=== PATIENT | female | born 1985 | race Caucasian/White ===

== ENCOUNTER 2016-08-24 11:33 | Inpatient (IN) | payer MEDICAID ==
[~2016-08-24] VITALS: Ht 152.4 cm; Wt 69.5 kg
[~2016-08-24 11:33] MED LIST: DOXY1TAB3 PO; PRENAT PO
[2016-08-24 12:36] VITALS: Ht 152.4 cm; Wt 69.5 kg
[2016-08-24 12:37] VITALS: BP 110/64; PULSE 96; RESP 20
--- NOTE | 2016-08-24 13:57 | RADRPT ---
PROCEDURE: US OB biophysical profile. Ultrasound cervix CLINICAL INDICATION: decreased movements, bleeding TECHNIQUE: Multiple sonographic images of the pelvis were obtained. The images were reviewed on a PACS workstation. In addition, transvaginal images of the cervix were obtained. COMPARISON: No prior studies are available for comparison. FINDINGS: The cervix is closed and measures 2 cm in length. The umbilical cord and hand are seen before the head in the lower uterine segment. There is a single viable intrauterine gestation. Cardiac activity is present with 146 beats per min butch. There is a vertex presentation. The placenta is fundal. There is no evidence of placental abruption. There is a normal amount of amniotic fluid with an CONSTANCE = 14.4 cm. Biophysical profile: movement 2/2 tone 2/2. breathing 2/2 CONSTANCE 2/2 Total 01/24 RPTAT: AA . IMPRESSION: Normal biophysical profile. Cervix is closed and measures 2 cm in length. Umbilical cord and hand are seen before the head in the lower uterine segment. . .Neri Lechuga MD, MD Date Time Electronically viewed and signed by .Neri Lechuga MD, on 08/24/2016 13:57 .S/
--- NOTE | 2016-08-24 15:23 | TRIAGE ---
OB Triage Datetime Report Generated by CPN: 08/24/2016 15:23 Datetime: 08/24/2016 14:37 Stage of : Antepartum Datetime: 08/24/2016 14:36 Vaginal Exam Dilatation (cms): 0.0 Station: -3 Exam By: DR. ARADALAN Datetime: 08/24/2016 13:53 Labor Evaluation Frequency: IRREG Monitor Mode: External Duration (sec)2399: 40-70 Quality: Strong Pattern: Normal: <= 5 Contractions in 10 Minutes Resting Tone [place]: Relaxed Heart Rate FHR Baseline Rate: 145 Monitor Mode: External US Variability: Moderate 6-25 bpm Accelerations: 15X15 Decelerations: None Category: Category I Datetime: 08/24/2016 12:23 Stage of : OB Triage Assessment Type: Triage Maternal Assessment Level of Consciousness: Fully Conscious DTR's/Clonus: DTRs 2+; No Clonus Headache: Denies Blurred Vision: No Respiratory Effort: Unlabored; Regular Rhythm; Equal Expansion Breath Sounds, Left: Clear and Equal Breath Sounds, Right: Clear and Equal Nausea/Vomiting: Denies RUQ Epigastric Pain: Denies Lower Extremities Edema: None Degree: None Upper Extremities Edema: None Degree: None Facial Edema: None Temperature Route: Axillary Fall Risk Assessment History of Falling: (0) No Secondary Diagnosis: (0) No Ambulatory Aid: (0) Bedrest/Nurse Assist IV Therapy: (0) No Gait: (0) Normal/Bedrest/Immobile Mental Status: (0) Oriented to Own Ability Fall Score: 0 Fall Risk Score Definition: No Risk: No action required Datetime: 08/24/2016 12:22 EGA: 30.6 Datetime: 08/24/2016 12:20 Pain Assessment Pain Scale: 8 Pain Presence: Intermittent Pain Type: Pressure Pain Location: Perineum Pain Goal: 2 Pain Relief Measures: Comfort Measures Datetime: 08/24/2016 11:53 Time of Arrival: 08/24/2016 11:24 Arrived By: Ambulatory Arrived From: Home Chief Complaint: R/O PTL Movement: Present Contractions: Irregular Time Contractions Began: 08/24/2016 08:00 Contractions: 6-8 Rupture of Membranes: Denies Vaginal Bleeding: None Vaginal Discharge: Denies Recent Sexual Intercouse: Denies Abdominal Trauma: Not Applicable Patient Complaints: Contractions Time Provider Notified: 08/24/2016 12:25 Provider Notified: DR. LOPEZ Initial Plan: CL, NST, PLACENTA LOCATION, SPECULUM EXAM Datetime: 08/24/2016 11:50 Labor Evaluation Frequency: 0 Monitor Mode: External Duration (sec)2399: 0 Resting Tone [place]: Relaxed Contraction Comments: PLACE PT ON THE MONITOR Heart Rate FHR Baseline Rate: 150 Monitor Mode: External US FHR Baseline Changes: No Baseline Change Variability: Moderate 6-25 bpm Accelerations: 10X10 Decelerations: Variable Category: Category II Comments: PLACE PT ON LEFT SIDE
[2016-08-24] MEDS ORDERED: MAGNESIUM SULFATE 4 GM/100 ML 100 ML IV ONE (15:30)
[2016-08-24] MEDS ORDERED: AMPICILLIN 2 GM/NS (PMX) 100 ML IV ONE (15:30)
[2016-08-24] MEDS: BETAMET NA PHOS/AC(6 MG/ML) 5ML INJ IM SCH (15:40)
[2016-08-24] MEDS: LACTATED RINGER'S 1,000 ML IV SCH ×2 (15:51→23:25)
[2016-08-24] MEDS: MAGNESIUM SULFATE 20 GM/500 ML 500 ML IV SCH (16:12)
[2016-08-24] MEDS: AMPICILLIN 1 GM/NS (PMX) 50 ML IV SCH (20:40)
--- NOTE | 2016-08-24 21:35 | HP ---
Date/Time of Note Date/Time of Note DATE: 08/24/16 TIME: 21:35 OB - History Hx of Present Free Text/Dictation 31-year-old with IUP at 30 weeks and 6 days with care with Dr. Lora presented to the hospital with complaint of bleeding intermittently since 2 days ago as well as increasing pelvic pain and pressure since this morning. She reports she she was feeling cramps and pelvic pressure today at work and brought her to the hospital. Patient was noted to have a short cervix and exam. Cervical length: 2 cm. OB history significant for history of UTI in current admitted in the past for 2 days and had been treated. She also has a history of GDM A1 well controlled with diet. She was noted to have contractions on the monitor during observation in triage Due to contractions and short cervix consistent with labor patient will be admitted to antepartum service for tocolysis and steroid. Chief Complaint: Pelvic pressure, spotting and cramps Estimated Due Date: October 27, 2016 : 3 Para: 2 Care: Good Care Past Family/Social History * Past Medical, Surgical, Family and Obstetric Histories reviewed from chart. OB history significant for GDM, A diet-controlled History of UTI in current admitted in the past for 2 days and had been treated Currently denies any UTI symptoms OB Admission Exam Vital Signs Vital Signs Vital Signs Date Time Temp Pulse Resp B/P Pulse Ox O2 Delivery O2 Flow Rate FiO2 08/24/16 12:37 98.3 96 20 110/64 99 Room Air PROCEDURE: US OB biophysical profile. Ultrasound cervix CLINICAL INDICATION: decreased movements, bleeding TECHNIQUE: Multiple sonographic images of the pelvis were obtained. The images were reviewed on a PACS workstation. In addition, transvaginal images of the cervix were obtained. COMPARISON: No prior studies are available for comparison. FINDINGS: The cervix is closed and measures 2 cm in length. The umbilical cord and hand are seen before the head in the lower uterine segment. There is a single viable intrauterine gestation. Cardiac activity is present with 146 beats per minute. There is a vertex presentation. The placenta is fundal. There is no evidence of placental abruption. There is a normal amount of amniotic fluid with an CONSTANCE = 14.4 cm. Biophysical profile: movement 2/2 tone 2/2. breathing 2/2 CONSTANCE 2/2 Total 01/24 RPTAT: AA . IMPRESSION: Normal biophysical profile. Cervix is closed and measures 2 cm in length. Umbilical cord and hand are seen before the head in the lower uterine segment. . Physical Exam HEENT: WNL Heart: Rhythm Normal Lungs: Clear Abdomen: WNL Extremities: Normal Cervical Dilatation: None Effacement: Other (CL: 2 cm in us. Could not obtain FFN due to spotting) Heart Rate: 130's Accelerations: Accelerations Present Decelerations: No Decelerations Varibility: Moderate Contractions on Admission: < 5 Minutes Apart Intensity: Moderate Last 72 hourBlood Glucose Bedside Glucose - 72 Hours Test 08/24/16 19:55 Bedside Glucose 156mg/dL (70-220) Last 72 hours Lab Results Magnesium Level Test 08/24/16 17:58 Magnesium Level 4.2 H OB Assessment/Plan Other Assessment: IUP at 30 weeks and 6 days Short cervix and contractions and vaginal bleeding consistent with labor RH positive, no evidence of previa or abruption in us Patient will be admitted for tocolysis and steroid magnesium for tocolysis and neuro prophylaxis Ampicillin for GBS prophylaxis will start steroid UA, urine Gc/ Chlamydia Perinatology/neonatology consultation tomorrow Presentation in ultrasound: Compound ( Vtx and hand ) as well as cord seen in the lower uterine segment Watch closely 2000 KCal diet check blood sugars , fasting and 2 hours post prandial. Goal of fasting < 90 and post prandial < 120, cover with ISS Plan discussed with the patient. questions were answered to the patient's best satisfaction ANTONIO LOPEZ MD Aug 24, 2016 21:35
[2016-08-24] MEDS ORDERED: DIPHTH/TET/ACEL PERTUSS (ADULT) 0.5 ML VIAL IM* ONE (22:00)
[2016-08-25] MEDS: MAGNESIUM SULFATE 20 GM/500 ML 500 ML IV SCH ×2 (01:25→04:41)
[2016-08-25] MEDS: AMPICILLIN 1 GM/NS (PMX) 50 ML IV SCH ×2 (04:23→04:35)
[2016-08-25] MEDS: LACTATED RINGER'S 1,000 ML IV SCH (04:35)
[2016-08-25] MEDS ORDERED: GLUCOSE GEL 15 GRAM TUBE PO PRN ×2 (05:30)
[2016-08-25] MEDS ORDERED: GLUCAGON 1 MG INJ IM PRN (05:30)
[2016-08-25] MEDS ORDERED: GLUCOSE GEL 15 GRAM TUBE BUCCAL PRN (05:30)
[2016-08-25] MEDS ORDERED: DEXTROSE 50% 50 ML SYRINGE IV PRN ×2 (05:30)
[2016-08-25] MEDS ORDERED: MULTIVIT/MIN/FOLATE/IRON/PREN TAB PO SCH ×2 (09:00)
[2016-08-25] MEDS ORDERED: AMPICILLIN 1 GM/NS (PMX) 50 ML IV SCH (10:30)
[2016-08-25] MEDS: MULTIVIT/MIN/FOLATE/IRON/PREN TAB PO SCH (10:40)
[2016-08-25] MEDS: INSULIN ASPART [NOVOLOG] 3 ML PEN SC SCH ×3 (10:47→19:42)
[2016-08-25 10:53] LABS: ADD UMIC NO; URINE BILIRUBIN (Dip) NEGATIVE (NEGATIVE); URINE BLOOD (Dip) NEGATIVE (NEGATIVE); URINE COLOR LT. YELLOW (YELLOW); URINE GLUCOSE (Dip) NEGATIVE (NEGATIVE); URINE KETONES (Dip) 3+ (NEGATIVE); URINE LEUKOCYTE ESTERASE (Dip) NEGATIVE (NEGATIVE); URINE NITRITE (Dip) NEGATIVE (NEGATIVE); URINE TOTAL PROTEIN (Dip) NEGATIVE (NEGATIVE); URINE UROBILINOGEN (Dip) 0.2 E.U./dL (0.1-1.0)
--- NOTE | 2016-08-25 11:01 | QN ---
Documentation Comment doing well today vss tracing catg 1 no ctxs no change in cervix will receive second beta methasone today and d/c home TOAN BUTCHER MD Aug 25, 2016 11:01
--- NOTE | 2016-08-25 11:02 | PD.PPDC ---
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 Discharge Instruction Condition Patient Condition: Stable Diet Diet: Resume Regular Diet Activity/Restrictions Activity: Normal Activity May Shower Restrictions: No Exercising No Lifting No Driving No Sexual Activity Nothing in the Vagina No [place] No Tampons, douche Wound/Drain Care Instructions Wound/Drain Care Instructions: Wash with soap and water Keep clean and dry Follow-up Follow-up with Physician: 1, Week/Weeks Return to clinic for PRODUCTION COORDINATOR Instructions: Fever greater than 101 Chills Worsening abdominal pain Excessive Vaginal Bleeding More than 2 pads per hour Unable to tolerate diet OB Instructions: Breast Tenderness Depression Blurried Vision Headache Surgical Instructions: Incisional Drainage Incisional Redness TOAN BUTCHER MD Aug 25, 2016 11:02
--- NOTE | 2016-08-25 11:02 | DS ---
Date/Time of Note Date/Time of Note DATE: 08/25/16 TIME: 11:01 Discharge Summary Admission/Discharge Info Admit Date/Time Aug 24, 2016 at 14:48 Discharge Date/Time Final Diagnosis labor Patient Condition: Stable Hospital Course unremarkable ., received mag sultfate, beta methasone , antibiotics Home Meds Active Scripts Doxylamine/Pyridoxine Hcl (NEIL DUGGAN 10-10 MG TABLET) 1 Each Tablet., 1 TAB PO Q12 for VOMITTING, #30 TAB Prov:BRAULIO ESPINOZA V. FOOD AND BEVERAGE COORDINATOR 03/17/16 Multivit/Min/Fol Ac/Iron/Pren* ( S*) 1 Tab Tab, 1 TAB PO DAILY for 30 Days, TAB Prov:BRAULIO ESPINOZA V. FOOD AND BEVERAGE COORDINATOR 03/17/16 Pending Labs Laboratory Tests Test 08/24/16 17:58 08/24/16 19:55 08/25/16 00:37 08/25/16 05:42 Magnesium Level 4.2mg/dl (1.7-2.5) 5.3mg/dl (1.7-2.5) 4.8mg/dl (1.7-2.5) Bedside Glucose 156mg/dL (70-220) Test 08/25/16 08:18 08/25/16 09:45 Bedside Glucose 115mg/dL (70-220) Urine Bilirubin NEGATIVE (NEGATIVE) Urine Clarity CLEAR (CLEAR) Urine Color LT. YELLOW (YELLOW) Urine Glucose NEGATIVE% (NEGATIVE) Urine Hemoglobin NEGATIVE (NEGATIVE) Urine Ketones 3+ (NEGATIVE) Urine Leukocyte Esterase NEGATIVE (NEGATIVE) Urine Nitrite NEGATIVE (NEGATIVE) Urine Specific [place] >=1.030 (1.003-1.030) Urine Total Protein NEGATIVE (NEGATIVE) Urine Urobilinogen 0.2 E.U./dL (0.1-1.0) Urine pH 5.0 (5.0-9.0) TOAN BUTCHER MD Aug 25, 2016 11:01
[2016-08-25] MEDS: BETAMET NA PHOS/AC(6 MG/ML) 5ML INJ IM SCH (15:55)
[2016-08-26] MEDS: MULTIVIT/MIN/FOLATE/IRON/PREN TAB PO SCH (09:11)
[2016-08-26] MEDS: INSULIN ASPART [NOVOLOG] 3 ML PEN SC SCH ×2 (11:22→14:44)
[2016-08-26] MEDS ORDERED: INSULIN DETEMIR [LEVEMIR] 3ML CART SC ONE (14:30)
--- NOTE | 2016-08-26 16:13 | DS ---
Date/Time of Note Date/Time of Note DATE: 08/26/16 TIME: 16:11 Discharge Summary Admission/Discharge Info Admit Date/Time Aug 24, 2016 at 14:48 Discharge Date/Time Final Diagnosis third trimester bleeding gestational DM Patient Condition: Stable Hospital Course unremarkable ., received mag sultfate, beta methasone , antibiotics addemdum to prevoius DC summary pt stayed for BS treatment and seen by dr bustos and can be dc home Home Meds Active Scripts Doxylamine/Pyridoxine Hcl (NEIL DUGGAN 10-10 MG TABLET) 1 Each Tablet.dr, 1 TAB PO Q12 for VOMITTING, #30 TAB Prov:ESPINOZAYOKASTAA V. SALES REPRESENTATIVE [employer] 03/17/16 Multivit/Min/Fol Ac/Iron/Pren* ( S*) 1 Tab Tab, 1 TAB PO DAILY for 30 Days, TAB Prov:ESPINOZA,BRAULIO V. SALES REPRESENTATIVE [employer] 03/17/16 Pending Labs Laboratory Tests Test 08/25/16 19:34 08/26/16 08:40 08/26/16 11:22 08/26/16 14:38 Bedside Glucose 204mg/dL (70-220) 117mg/dL (70-220) 155mg/dL (70-220) 143mg/dL (70-220) JILL UGARTE MD Aug 26, 2016 16:13
--- NOTE | 2016-08-26 17:15 | PERINOTE ---
Date/Time of Note Date/Time of Note DATE: 08/26/16 TIME: 17:07 Assessment/Recommendations Other Assessments Diabetes out of control, not all of which is explained by steroid administration. UCs, now abated Recommendations: This patient will have an injection of levamir for acute basal regulation of blood glucose, and will be discharged with metformin 500mg BID. She has an appointment for follow up in the perinatology office. OB Subjective Free Text/Dictaton Patient admitted with vaginal bleeding, now resolved. She was also found to have diabetes out of control, especially after the administration of steroids. HgbA1c was 7.8%, suggesting pre-existing diabetes. Patient reports diabetes with her last , treated with diet. She has been noncompliant with diet in this . HD# 3 IUP @ 31W1D Complaints/Overnight events Patient reports no further bleeding. Current Medications Current Medications Prenat Multivit/ Testing Engineer/Iron/Folic Ac ( S) 1 tab DAILY PO Last administered on 08/26/16t 09:11; Admin Dose 1 TAB; Start 08/25/16 at 09:00 Miscellaneous Information 1 ea NOTE XX ; Start 08/25/16 at 05:30 Glucose (Glutose) 15 gm Q15M PRN PO DECREASED GLUCOSE; Start 08/25/16 at 05:30 Glucose (Glutose) 22.5 gm Q15M PRN PO DECREASED GLUCOSE; Start 08/25/16 at 05:30 Dextrose (D50w Syringe) 25 ml Q15M PRN IV DECREASED GLUCOSE; Start 08/25/16 at 05:30 Dextrose (D50w Syringe) 50 ml Q15M PRN IV DECREASED GLUCOSE; Start 08/25/16 at 05:30 Glucagon (Glucagen) 1 mg Q15M PRN IM DECREASED GLUCOSE; Start 08/25/16 at 05:30 Glucose (Glutose) 15 gm Q15M PRN BUCCAL DECREASED GLUCOSE; Start 08/25/16 at 05: 30 Past Medical History Medical History: no pertinent history Surgical History: no surgical history Para: 2 : 3 LMP (Females 10-50): OB Admission Exam Physical Exam Vitals: Vital Signs Date Time Temp Pulse Resp B/P Pulse Ox O2 Delivery O2 Flow Rate FiO2 08/24/16 12:37 98.3 96 20 110/64 99 Room Air Heart: Rhythm Normal Lungs: Clear Heart Rate: 120's Accelerations: Accelerations Present Decelerations: No Decelerations Varibility: Moderate Contractions on Admission: None Last 72 hourBlood Glucose Bedside Glucose - 72 Hours Test 08/24/16 19:55 08/25/16 08:18 08/25/16 10:39 08/25/16 14:20 Bedside Glucose 156mg/dL (70-220) 115mg/dL (70-220) 226mg/dL (70-220) H 185mg/dL (70-220) Test 08/25/16 19:34 08/26/16 08:40 08/26/16 11:22 08/26/16 14:38 Bedside Glucose 204mg/dL (70-220) 117mg/dL (70-220) 155mg/dL (70-220) 143mg/dL (70-220) Last 72 hours Lab Results Magnesium Level Test 08/24/16 17:58 08/25/16 00:37 08/25/16 05:42 Magnesium Level 4.2 H 5.3 *H 4.8 H SHANA ROCHA MD Aug 26, 2016 17:15
== END 2016-08-26 20:28 | disposition home or self-care (01) | DRG 781 ==
LOC: OBT 11:33 → L-D 11:33 → OBT 14:46 → OBG 14:48
PROVIDERS: ADMIT Obstetrics & Gynecology; ATTEND Obstetrics & Gynecology
DX: O26.873 Cervical shortening, third trimester (principal); O24.419 Gestational diabetes mellitus in pregnancy, unspecified control; Z3A.30 30 weeks gestation of pregnancy
CPT/HCPCS: 36415; 76817; 76818; 81003; 82962; 83735; 87086; 87591; 90715; 96360; 96361; G0463; J0290; J0702; J1815; J3475; J7120

== ENCOUNTER 2016-10-07 15:48 | Outpatient (CLI) | payer MEDICAID ==
[~2016-10-07] VITALS: Ht 152.4 cm; Wt 72.1 kg
[2016-10-07 16:08] VITALS: BP 122/75; PULSE 85
--- NOTE | 2016-10-07 18:57 | TRIAGE ---
OB Triage Datetime Report Generated by CPN: 10/07/2016 18:57 Datetime: 10/07/2016 18:40 Labor Evaluation Frequency: OCC Monitor Mode: External Duration (sec)2399: 50-90 Quality: Moderate Pattern: Normal: <= 5 Contractions in 10 Minutes Resting Tone [place]: Relaxed Heart Rate FHR Baseline Rate: 135 Monitor Mode: External US FHR Baseline Changes: No Baseline Change Variability: Moderate 6-25 bpm Accelerations: 15X15 Decelerations: None Category: Category I Pain Assessment Pain Scale: 8 Pain Presence: Intermittent Pain Type: Contraction; Pressure Pain Location: Abdomen; Back Pain Goal: 2 Pain Relief Measures: Comfort Measures Datetime: 10/07/2016 18:31 Vaginal Exam Dilatation (cms): 1.0 Effacement (%): 50 Station: -3 Exam By: Shanell RN Datetime: 10/07/2016 16:25 Labor Evaluation Frequency: 1-6 Monitor Mode: External Duration (sec)2399: 40-180 Quality: Moderate Pattern: Normal: <= 5 Contractions in 10 Minutes Resting Tone [place]: Relaxed Heart Rate FHR Baseline Rate: 130 Monitor Mode: External US FHR Baseline Changes: No Baseline Change Variability: Moderate 6-25 bpm Accelerations: 15X15 Decelerations: None Category: Category I Datetime: 10/07/2016 16:01 Vaginal Exam Dilatation (cms): 1.0 Effacement (%): 40 Station: -4 Exam By: Shanell RN Datetime: 10/07/2016 16:00 Pain Assessment Pain Scale: 8 Pain Presence: Intermittent Pain Type: Contraction; Pressure Pain Location: Abdomen; Back Pain Goal: 2 Pain Relief Measures: Comfort Measures Datetime: 10/07/2016 15:54 Time of Arrival: 10/07/2016 15:45 EGA: 37.1 Arrived By: Ambulatory Arrived From: Home Chief Complaint: UC Movement: Present Contractions: Denies/Absent Rupture of Membranes: Denies Vaginal Discharge: Denies Recent Sexual Intercouse: Denies Abdominal Trauma: Not Applicable Initial Plan: NST, Pt to ambulate for 2 hours, VE Datetime: 08/26/2016 16:02 Stage of : Antepartum Datetime: 08/26/2016 14:40 Stage of : Antepartum Bedside Blood Glucose: 145 (Annotations: 2 hour post prandial) Labor Evaluation Frequency: x3 Monitor Mode: External Duration (sec)2399: 40-50 Quality: Mild Resting Tone [place]: Relaxed Heart Rate FHR Baseline Rate: 135 Monitor Mode: External US FHR Baseline Changes: No Baseline Change Variability: Moderate 6-25 bpm Accelerations: 15X15 Decelerations: None Datetime: 08/26/2016 14:00 Stage of : Antepartum Datetime: 08/26/2016 13:45 Stage of : Antepartum Labor Evaluation Frequency: x3 Monitor Mode: External Duration (sec)2399: 40-50 Quality: Mild Resting Tone [place]: Relaxed Heart Rate FHR Baseline Rate: 135 Monitor Mode: External US FHR Baseline Changes: No Baseline Change Variability: Moderate 6-25 bpm Accelerations: 15X15 Decelerations: None Datetime: 08/26/2016 12:45 Labor Evaluation Frequency: 0 Monitor Mode: External Resting Tone [place]: Relaxed Heart Rate FHR Baseline Rate: 135 Monitor Mode: External US FHR Baseline Changes: No Baseline Change Variability: Moderate 6-25 bpm Accelerations: 15X15 Decelerations: None Datetime: 08/26/2016 11:45 Labor Evaluation Frequency: x2 Monitor Mode: External Duration (sec)2399: 50-100 Quality: Mild Resting Tone [place]: Relaxed Heart Rate FHR Baseline Rate: 135 Monitor Mode: External US FHR Baseline Changes: No Baseline Change Variability: Moderate 6-25 bpm Accelerations: 15X15 Decelerations: None Datetime: 08/26/2016 11:22 Stage of : Antepartum Bedside Blood Glucose: 155 (Annotations: 2 hour post prandial) Datetime: 08/26/2016 10:45 Labor Evaluation Frequency: x2 Monitor Mode: External Duration (sec)2399: 50-100 Quality: Mild Resting Tone [place]: Relaxed Heart Rate FHR Baseline Rate: 135 Monitor Mode: External US FHR Baseline Changes: No Baseline Change Variability: Moderate 6-25 bpm Accelerations: 15X15 Decelerations: None Datetime: 08/26/2016 09:45 Labor Evaluation Frequency: x2 Monitor Mode: External Duration (sec)2399: 50-100 Quality: Mild Resting Tone [place]: Relaxed Heart Rate FHR Baseline Rate: 130 Monitor Mode: External US FHR Baseline Changes: No Baseline Change Variability: Moderate 6-25 bpm Accelerations: 15X15 Decelerations: None Datetime: 08/26/2016 08:45 Labor Evaluation Frequency: x2 Monitor Mode: External Duration (sec)2399: 50-100 Quality: Mild Resting Tone [place]: Relaxed Heart Rate FHR Baseline Rate: 130 Monitor Mode: External US FHR Baseline Changes: No Baseline Change Variability: Moderate 6-25 bpm Accelerations: 15X15 Decelerations: None Datetime: 08/26/2016 08:36 Bedside Blood Glucose: 117 (Annotations: FBS) Datetime: 08/26/2016 08:16 Stage of : Antepartum Temperature Route: Oral Pain Assessment Pain Scale: 0 Pain Presence: None/Denies Pain Goal: 0 Datetime: 08/26/2016 07:45 Labor Evaluation Frequency: x2 Monitor Mode: External Duration (sec)2399: 50-100 Quality: Mild Resting Tone [place]: Relaxed Heart Rate FHR Baseline Rate: 130 Monitor Mode: External US FHR Baseline Changes: No Baseline Change Variability: Moderate 6-25 bpm Accelerations: 15X15 Decelerations: None Datetime: 08/26/2016 07:30 Assessment Type: Ongoing Assessment Maternal Assessment Level of Consciousness: Fully Conscious DTR's/Clonus: DTRs 2+; No Clonus Headache: Denies Blurred Vision: No Respiratory Effort: Unlabored; Regular Rhythm; Equal Expansion Breath Sounds, Left: Clear and Equal Breath Sounds, Right: Clear and Equal Nausea/Vomiting: Denies RUQ Epigastric Pain: Denies Lower Extremities Edema: None Degree: None Upper Extremities Edema: None Degree: None Facial Edema: None Fall Risk Assessment History of Falling: (0) No Secondary Diagnosis: (0) No Ambulatory Aid: (0) Bedrest/Nurse Assist IV Therapy: (0) No Gait: (0) Normal/Bedrest/Immobile Mental Status: (0) Oriented to Own Ability Fall Score: 0 Fall Risk Score Definition: No Risk: No action required Datetime: 08/26/2016 06:44 Labor Evaluation Frequency: x2 Monitor Mode: External Duration (sec)2399: 50-100 Quality: Mild Resting Tone [place]: Relaxed Contraction Comments: pt without complaint of uc pain. Heart Rate FHR Baseline Rate: 130 Monitor Mode: External US FHR Baseline Changes: No Baseline Change Variability: Moderate 6-25 bpm Accelerations: 15X15 Decelerations: None Category: Category I Datetime: 08/26/2016 06:00 Labor Evaluation Frequency: none Monitor Mode: External Resting Tone [place]: Relaxed Heart Rate FHR Baseline Rate: 130 Monitor Mode: External US FHR Baseline Changes: No Baseline Change Variability: Moderate 6-25 bpm Accelerations: 15X15 Decelerations: None Category: Category I Datetime: 08/26/2016 05:00 Labor Evaluation Frequency: none Monitor Mode: External Resting Tone [place]: Relaxed Heart Rate FHR Baseline Rate: 120 Monitor Mode: External US FHR Baseline Changes: No Baseline Change Variability: Moderate 6-25 bpm Accelerations: 15X15 Decelerations: None Category: Category I Datetime: 08/26/2016 04:00 Labor Evaluation Frequency: none Monitor Mode: External Resting Tone [place]: Relaxed Heart Rate FHR Baseline Rate: 125 Monitor Mode: External US FHR Baseline Changes: No Baseline Change Variability: Moderate 6-25 bpm Accelerations: 15X15 Decelerations: None Category: Category I Datetime: 08/26/2016 03:00 Labor Evaluation Frequency: none Monitor Mode: External Resting Tone [place]: Relaxed Heart Rate FHR Baseline Rate: 125 Monitor Mode: External US FHR Baseline Changes: No Baseline Change Variability: Moderate 6-25 bpm Accelerations: 15X15 Decelerations: None Category: Category I Datetime: 08/26/2016 02:00 Labor Evaluation Frequency: none Monitor Mode: External Resting Tone [place]: Relaxed Heart Rate FHR Baseline Rate: 120 Monitor Mode: External US FHR Baseline Changes: No Baseline Change Variability: Moderate 6-25 bpm Accelerations: 15X15 Decelerations: None Category: Category I Datetime: 08/26/2016 01:00 Labor Evaluation Frequency: none Monitor Mode: External Resting Tone [place]: Relaxed Heart Rate FHR Baseline Rate: 130 Monitor Mode: External US FHR Baseline Changes: No Baseline Change Variability: Moderate 6-25 bpm Accelerations: 15X15 Decelerations: None Category: Category I Datetime: 08/26/2016 00:00 Labor Evaluation Frequency: none Monitor Mode: External Resting Tone [place]: Relaxed Heart Rate FHR Baseline Rate: 120 Monitor Mode: External US FHR Baseline Changes: No Baseline Change Variability: Moderate 6-25 bpm Accelerations: 15X15 Decelerations: None Category: Category I Datetime: 08/25/2016 23:00 Labor Evaluation Frequency: none Monitor Mode: External Resting Tone [place]: Relaxed Heart Rate FHR Baseline Rate: 125 Monitor Mode: External US FHR Baseline Changes: No Baseline Change Variability: Moderate 6-25 bpm Accelerations: 15X15 Decelerations: None Category: Category I Datetime: 08/25/2016 22:00 Labor Evaluation Frequency: x7 Monitor Mode: External Duration (sec)2399: 40-50 Quality: Mild Resting Tone [place]: Relaxed Contraction Comments: pt without complaint of uc pain. Heart Rate FHR Baseline Rate: 120 Monitor Mode: External US FHR Baseline Changes: No Baseline Change Variability: Moderate 6-25 bpm Accelerations: 15X15 Decelerations: None Category: Category I Datetime: 08/25/2016 21:00 Labor Evaluation Frequency: x1 Monitor Mode: External Duration (sec)2399: 50 Quality: Mild Resting Tone [place]: Relaxed Contraction Comments: pt without complaint of uc pain. Heart Rate FHR Baseline Rate: 120 Monitor Mode: External US FHR Baseline Changes: No Baseline Change Variability: Moderate 6-25 bpm Accelerations: 15X15 Decelerations: None Category: Category I Datetime: 08/25/2016 20:00 Labor Evaluation Frequency: x1 Monitor Mode: External Duration (sec)2399: 50 Quality: Mild Resting Tone [place]: Relaxed Contraction Comments: pt without complaint of uc pain. Heart Rate FHR Baseline Rate: 125 Monitor Mode: External US FHR Baseline Changes: No Baseline Change Variability: Moderate 6-25 bpm Accelerations: 15X15 Decelerations: None Category: Category I Pain Assessment Pain Scale: 0 Pain Presence: None/Denies Datetime: 08/25/2016 19:44 Stage of : Antepartum Assessment Type: Ongoing Assessment Maternal Assessment Level of Consciousness: Fully Conscious DTR's/Clonus: DTRs 2+; No Clonus Headache: Denies Blurred Vision: No Respiratory Effort: Unlabored; Regular Rhythm; Equal Expansion Breath Sounds, Left: Clear and Equal Breath Sounds, Right: Clear and Equal Nausea/Vomiting: Denies RUQ Epigastric Pain: Denies Lower Extremities Edema: None Degree: None Upper Extremities Edema: None Degree: None Facial Edema: None Temperature Route: Oral Fall Risk Assessment History of Falling: (0) No Secondary Diagnosis: (0) No Ambulatory Aid: (0) Bedrest/Nurse Assist IV Therapy: (0) No Gait: (0) Normal/Bedrest/Immobile Mental Status: (0) Oriented to Own Ability Fall Score: 0 Fall Risk Score Definition: No Risk: No action required Datetime: 08/25/2016 19:00 Labor Evaluation Frequency: 0 Monitor Mode: External Quality: Mild Resting Tone [place]: Relaxed Heart Rate FHR Baseline Rate: 130 Monitor Mode: External US FHR Baseline Changes: No Baseline Change Variability: Moderate 6-25 bpm Accelerations: 15X15 Decelerations: None Category: Category I Datetime: 08/25/2016 18:00 Labor Evaluation Frequency: 0 Monitor Mode: External Resting Tone [place]: Relaxed Heart Rate FHR Baseline Rate: 130 Monitor Mode: External US FHR Baseline Changes: No Baseline Change Variability: Moderate 6-25 bpm Accelerations: 15X15 Decelerations: None Category: Category I Datetime: 08/25/2016 17:00 Labor Evaluation Frequency: 0 Monitor Mode: External Resting Tone [place]: Relaxed Heart Rate FHR Baseline Rate: 130 Monitor Mode: External US FHR Baseline Changes: No Baseline Change Variability: Moderate 6-25 bpm Accelerations: 15X15 Decelerations: None Category: Category I Datetime: 08/25/2016 16:44 Stage of : Antepartum Datetime: 08/25/2016 16:00 Labor Evaluation Frequency: 0 Monitor Mode: External Resting Tone [place]: Relaxed Heart Rate FHR Baseline Rate: 130 Monitor Mode: External US FHR Baseline Changes: No Baseline Change Variability: Moderate 6-25 bpm Accelerations: 10X10 Decelerations: None Category: Category I Datetime: 08/25/2016 15:58 Stage of : Antepartum Temperature Route: Oral Pain Presence: None/Denies Datetime: 08/25/2016 15:14 Stage of : Antepartum Temperature Route: Oral Monitor Mode: External Duration (sec)2399: 0 Resting Tone [place]: Relaxed Heart Rate FHR Baseline Rate: 145 Monitor Mode: External US FHR Baseline Changes: No Baseline Change Variability: Moderate 6-25 bpm Accelerations: 15X15 Decelerations: None Category: Category I Pain Presence: None/Denies Datetime: 08/25/2016 15:00 Labor Evaluation Frequency: 0 Monitor Mode: External Resting Tone [place]: Relaxed Heart Rate FHR Baseline Rate: 130 Monitor Mode: External US FHR Baseline Changes: No Baseline Change Variability: Moderate 6-25 bpm Accelerations: 10X10 Decelerations: None Category: Category I Datetime: 08/25/2016 14:36 Labor Evaluation Frequency: 0 Monitor Mode: External Resting Tone [place]: Relaxed Heart Rate FHR Baseline Rate: 140 Monitor Mode: External US FHR Baseline Changes: No Baseline Change Variability: Moderate 6-25 bpm Accelerations: 15X15 Decelerations: None Category: Category I Datetime: 08/25/2016 13:00 Labor Evaluation Frequency: 0 Monitor Mode: External Heart Rate FHR Baseline Rate: 130 Monitor Mode: External US FHR Baseline Changes: No Baseline Change Accelerations: 15X15 Decelerations: None Category: Category I Datetime: 08/25/2016 12:41 Stage of : Antepartum Temperature Route: Oral Pain Presence: None/Denies Datetime: 08/25/2016 12:00 Labor Evaluation Frequency: 0 Monitor Mode: External Heart Rate FHR Baseline Rate: 130 Monitor Mode: External US FHR Baseline Changes: No Baseline Change Variability: Moderate 6-25 bpm Accelerations: 15X15 Decelerations: None Category: Category I Datetime: 08/25/2016 11:00 Labor Evaluation Frequency: 0 Monitor Mode: External Heart Rate FHR Baseline Rate: 130 Monitor Mode: External US FHR Baseline Changes: No Baseline Change Variability: Moderate 6-25 bpm Accelerations: 15X15 Decelerations: None Category: Category I Datetime: 08/25/2016 10:00 Labor Evaluation Frequency: 0 Monitor Mode: External Heart Rate FHR Baseline Rate: 130 Monitor Mode: External US FHR Baseline Changes: No Baseline Change Variability: Moderate 6-25 bpm Decelerations: None Category: Category I Datetime: 08/25/2016 09:00 Monitor Mode: External Duration (sec)2399: 0 Heart Rate FHR Baseline Rate: 130 Monitor Mode: External US FHR Baseline Changes: No Baseline Change Variability: Moderate 6-25 bpm Accelerations: 10X10 Decelerations: None Category: Category I Datetime: 08/25/2016 07:46 Labor Evaluation Frequency: 0 Monitor Mode: External Resting Tone [place]: Relaxed (Annotations: BY PALPATION) Heart Rate FHR Baseline Rate: 120 Monitor Mode: External US FHR Baseline Changes: No Baseline Change Variability: Moderate 6-25 bpm Accelerations: 10X10 Decelerations: None Category: Category I Datetime: 08/25/2016 07:45 Stage of : Antepartum Temperature Route: Oral Pain Presence: None/Denies Pain Goal: 0 Datetime: 08/25/2016 07:35 Stage of : Antepartum Assessment Type: Ongoing Assessment Maternal Assessment Level of Consciousness: Fully Conscious DTR's/Clonus: DTRs 2+; No Clonus Headache: Denies Blurred Vision: No Respiratory Effort: Unlabored; Regular Rhythm; Equal Expansion Breath Sounds, Left: Clear and Equal Breath Sounds, Right: Clear and Equal Nausea/Vomiting: Denies RUQ Epigastric Pain: Denies Lower Extremities Edema: None Degree: None Upper Extremities Edema: None Degree: None Facial Edema: None Fall Risk Assessment History of Falling: (0) No Secondary Diagnosis: (0) No Ambulatory Aid: (0) Bedrest/Nurse Assist IV Therapy: (20) Yes Gait: (0) Normal/Bedrest/Immobile Mental Status: (0) Oriented to Own Ability Fall Score: 20 Fall Risk Score Definition: No Risk: No action required Datetime: 08/25/2016 05:24 Stage of : Antepartum Maternal Assessment Level of Consciousness: Fully Conscious Labor Evaluation Frequency: x1 Monitor Mode: External Resting Tone [place]: Relaxed Heart Rate FHR Baseline Rate: 135 Monitor Mode: External US FHR Baseline Changes: No Baseline Change Variability: Moderate 6-25 bpm Accelerations: 10X10 Decelerations: None Pain Presence: None/Denies Pain Goal: 3 Membrane Status: Intact Vaginal Bleeding: None Datetime: 08/25/2016 04:24 Stage of : Antepartum Maternal Assessment Level of Consciousness: Fully Conscious Nausea/Vomiting: Denies Labor Evaluation Frequency: x1 Monitor Mode: External Resting Tone [place]: Relaxed Heart Rate FHR Baseline Rate: 135 Monitor Mode: External US FHR Baseline Changes: No Baseline Change Variability: Moderate 6-25 bpm Accelerations: 10X10 Decelerations: None Pain Presence: None/Denies Pain Goal: 3 Membrane Status: Intact Vaginal Bleeding: None Datetime: 08/25/2016 03:24 Stage of : Antepartum Maternal Assessment Level of Consciousness: Fully Conscious Nausea/Vomiting: Denies Labor Evaluation Frequency: x1 Monitor Mode: External Resting Tone [place]: Relaxed Heart Rate FHR Baseline Rate: 135 Monitor Mode: External US FHR Baseline Changes: No Baseline Change Variability: Moderate 6-25 bpm Accelerations: 10X10 Decelerations: None Pain Presence: None/Denies Pain Goal: 3 Membrane Status: Intact Vaginal Bleeding: None Datetime: 08/25/2016 02:24 Stage of : Antepartum Maternal Assessment Level of Consciousness: Fully Conscious Nausea/Vomiting: Denies Labor Evaluation Frequency: x1 Monitor Mode: External Resting Tone [place]: Relaxed Heart Rate FHR Baseline Rate: 135 Monitor Mode: External US FHR Baseline Changes: No Baseline Change Variability: Moderate 6-25 bpm Accelerations: 10X10 Decelerations: None Pain Presence: None/Denies Pain Goal: 3 Membrane Status: Intact Vaginal Bleeding: None Datetime: 08/25/2016 01:24 Stage of : Antepartum Maternal Assessment Level of Consciousness: Fully Conscious DTR's/Clonus: DTRs 2+; No Clonus Headache: Denies Breath Sounds, Left: Clear and Equal Breath Sounds, Right: Clear and Equal Nausea/Vomiting: Denies RUQ Epigastric Pain: Denies Labor Evaluation Frequency: x1 Monitor Mode: External Resting Tone [place]: Relaxed Heart Rate FHR Baseline Rate: 135 Monitor Mode: External US FHR Baseline Changes: No Baseline Change Variability: Moderate 6-25 bpm Accelerations: 10X10 Decelerations: None Pain Presence: None/Denies Pain Goal: 3 Membrane Status: Intact Vaginal Bleeding: None Datetime: 08/25/2016 00:24 Stage of : Antepartum Maternal Assessment Level of Consciousness: Fully Conscious DTR's/Clonus: DTRs 2+; No Clonus Headache: Denies Breath Sounds, Left: Clear and Equal Breath Sounds, Right: Clear and Equal Nausea/Vomiting: Denies RUQ Epigastric Pain: Denies Temperature Route: Oral Labor Evaluation Frequency: x1 Monitor Mode: External Resting Tone [place]: Relaxed Heart Rate FHR Baseline Rate: 135 Monitor Mode: External US FHR Baseline Changes: No Baseline Change Variability: Moderate 6-25 bpm Accelerations: 10X10 Decelerations: None Pain Presence: None/Denies Pain Goal: 3 Membrane Status: Intact Vaginal Bleeding: None Datetime: 08/24/2016 23:24 Stage of : Antepartum Maternal Assessment Level of Consciousness: Fully Conscious DTR's/Clonus: DTRs 2+; No Clonus Headache: Denies Breath Sounds, Left: Clear and Equal Breath Sounds, Right: Clear and Equal Nausea/Vomiting: Denies RUQ Epigastric Pain: Denies Temperature Route: Oral Labor Evaluation Frequency: x1 Monitor Mode: External Resting Tone [place]: Relaxed Heart Rate FHR Baseline Rate: 135 Monitor Mode: External US FHR Baseline Changes: No Baseline Change Variability: Moderate 6-25 bpm Accelerations: 10X10 Decelerations: None Pain Presence: None/Denies Pain Goal: 3 Membrane Status: Intact Vaginal Bleeding: None Datetime: 08/24/2016 22:23 Stage of : Antepartum Maternal Assessment Level of Consciousness: Fully Conscious DTR's/Clonus: DTRs 2+; No Clonus Headache: Denies Breath Sounds, Left: Clear and Equal Breath Sounds, Right: Clear and Equal Nausea/Vomiting: Denies RUQ Epigastric Pain: Denies Labor Evaluation Frequency: x1 Monitor Mode: External Resting Tone [place]: Relaxed Heart Rate FHR Baseline Rate: 135 Monitor Mode: External US FHR Baseline Changes: No Baseline Change Variability: Moderate 6-25 bpm Accelerations: 10X10 Decelerations: None Pain Presence: None/Denies Pain Goal: 3 Membrane Status: Intact Vaginal Bleeding: None Datetime: 08/24/2016 21:24 Stage of : Antepartum Maternal Assessment Level of Consciousness: Fully Conscious DTR's/Clonus: DTRs 2+; No Clonus Headache: Denies Breath Sounds, Left: Clear and Equal Breath Sounds, Right: Clear and Equal Nausea/Vomiting: Denies RUQ Epigastric Pain: Denies Labor Evaluation Frequency: x1 Monitor Mode: External Resting Tone [place]: Relaxed Heart Rate FHR Baseline Rate: 135 Monitor Mode: External US FHR Baseline Changes: No Baseline Change Variability: Moderate 6-25 bpm Accelerations: 10X10 Decelerations: None Pain Presence: None/Denies Pain Goal: 3 Membrane Status: Intact Vaginal Bleeding: None Datetime: 08/24/2016 20:23 Stage of : Antepartum Maternal Assessment Level of Consciousness: Fully Conscious DTR's/Clonus: DTRs 2+; No Clonus Headache: Denies Breath Sounds, Left: Clear and Equal Breath Sounds, Right: Clear and Equal Nausea/Vomiting: Denies RUQ Epigastric Pain: Denies Labor Evaluation Frequency: x1 Monitor Mode: External Resting Tone [place]: Relaxed Heart Rate FHR Baseline Rate: 135 Monitor Mode: External US FHR Baseline Changes: No Baseline Change Variability: Moderate 6-25 bpm Accelerations: 10X10 Decelerations: None Pain Presence: None/Denies Pain Goal: 3 Membrane Status: Intact Vaginal Bleeding: None Datetime: 08/24/2016 19:23 Stage of : Antepartum Assessment Type: Ongoing Assessment Maternal Assessment Level of Consciousness: Fully Conscious DTR's/Clonus: DTRs 2+; No Clonus Headache: Denies Blurred Vision: No Respiratory Effort: Unlabored; Regular Rhythm; Equal Expansion Breath Sounds, Left: Clear and Equal Breath Sounds, Right: Clear and Equal Nausea/Vomiting: Denies RUQ Epigastric Pain: Denies Lower Extremities Edema: None Upper Extremities Edema: None Facial Edema: None Temperature Route: Oral Fall Risk Assessment History of Falling: (0) No Secondary Diagnosis: (0) No Ambulatory Aid: (0) Bedrest/Nurse Assist IV Therapy: (0) No Gait: (0) Normal/Bedrest/Immobile Mental Status: (0) Oriented to Own Ability Fall Score: 0 Fall Risk Score Definition: No Risk: No action required Labor Evaluation Frequency: x1 Monitor Mode: External Resting Tone [place]: Relaxed Heart Rate FHR Baseline Rate: 135 Monitor Mode: External US FHR Baseline Changes: No Baseline Change Variability: Moderate 6-25 bpm Accelerations: 10X10 Decelerations: None Datetime: 08/24/2016 19:00 Labor Evaluation Frequency: X4/HR Monitor Mode: External Resting Tone [place]: Relaxed Heart Rate FHR Baseline Rate: 135 Monitor Mode: External US FHR Baseline Changes: No Baseline Change Variability: Moderate 6-25 bpm Accelerations: 10X10 Decelerations: None Category: Category I Datetime: 08/24/2016 18:20 Stage of : Antepartum Labor Evaluation Frequency: X1/HR Monitor Mode: External Duration (sec)2399: 80 Resting Tone [place]: Relaxed Heart Rate FHR Baseline Rate: 130 Monitor Mode: External US FHR Baseline Changes: No Baseline Change Variability: Moderate 6-25 bpm Accelerations: 15X15 Decelerations: None Category: Category I Datetime: 08/24/2016 17:17 Stage of : Antepartum Temperature Route: Oral Pain Presence: None/Denies Pain Goal: 0 Datetime: 08/24/2016 17:15 Labor Evaluation Frequency: 0 Monitor Mode: External Pattern: Normal: <= 5 Contractions in 10 Minutes Resting Tone [place]: Relaxed Heart Rate FHR Baseline Rate: 135 Monitor Mode: External US FHR Baseline Changes: No Baseline Change Variability: Moderate 6-25 bpm Accelerations: 15X15 Decelerations: None Category: Category I Datetime: 08/24/2016 17:05 Stage of : Antepartum Datetime: 08/24/2016 16:45 Assessment Type: Admission Assessment Maternal Assessment Level of Consciousness: Fully Conscious DTR's/Clonus: DTRs 2+; No Clonus Headache: Denies Blurred Vision: No Respiratory Effort: Unlabored; Regular Rhythm; Equal Expansion Breath Sounds, Left: Clear and Equal Breath Sounds, Right: Clear and Equal Nausea/Vomiting: Denies RUQ Epigastric Pain: Denies Lower Extremities Edema: None Degree: None Upper Extremities Edema: None Degree: None Facial Edema: None Fall Risk Assessment History of Falling: (0) No Secondary Diagnosis: (0) No Ambulatory Aid: (0) Bedrest/Nurse Assist IV Therapy: (20) Yes Gait: (0) Normal/Bedrest/Immobile Mental Status: (0) Oriented to Own Ability Fall Score: 20 Fall Risk Score Definition: No Risk: No action required Datetime: 08/24/2016 16:00 Labor Evaluation Frequency: NONE Monitor Mode: External Pattern: Normal: <= 5 Contractions in 10 Minutes Resting Tone [place]: Relaxed Heart Rate FHR Baseline Rate: 135 Monitor Mode: External US FHR Baseline Changes: No Baseline Change Variability: Moderate 6-25 bpm Accelerations: 15X15 Decelerations: None Category: Category I Datetime: 08/24/2016 12:23 Fall Score: 0 Fall Risk Score Definition: No Risk: No action required Datetime: 08/24/2016 12:22 Time of Arrival: 08/24/2016 16:00 EGA: 30.6 Arrived By: Wheelchair
--- NOTE | 2016-10-07 20:24 | CONS ---
Date/Time of Note Date/Time of Note DATE: 10/07/16 TIME: 20:21 Assessment/Plan Assessment/Plan Additional Assessment/Plan Not in active labor. Discharge home with labor precautions. F/u with OB. Consultation Date/Type/Reason Admit Date/Time Hx of Present Illness a 37.1 weeks with abdominal pain. Denies LOF, VB, UCs, dysuria. +FM. Getting PNC, c/b GDMA2 on metformin. Past Medical History Medical History: no pertinent history Past Surgical History Past Surgical Hx: no surgical history, appendectomy Social History Smoking Status: Never smoker Other Social History Denies habits. Exam/Review of Systems Vital Signs Vitals Vital Signs Date Time Temp Pulse Resp B/P Pulse Ox O2 Delivery O2 Flow Rate FiO2 10/07/16 16:08 98.3 85 122/75 Room Air Exam Gen: NAD HEENT: NCAT CV: RRR Pulm: CTAB Abd: gravid, NT Back: no CVAT Ext: NT SVE: 1cm --> unchanged over 2 hours FHT: reactive Decker: irregular KAREN Perez Oct 07, 2016 20:24
== END 2016-10-07 18:53 | disposition home or self-care (01) ==
LOC: L-D 15:48 → OBT 15:48
PROVIDERS: ATTEND Obstetrics & Gynecology
DX: O26.893 Other specified pregnancy related conditions, third trimester (principal); Z3A.37 37 weeks gestation of pregnancy; R10.9 Unspecified abdominal pain; O24.415 Gestational diabetes mellitus in pregnancy, controlled by oral hypoglycemic drugs
CPT/HCPCS: G0463

== ENCOUNTER 2016-10-08 00:46 | Inpatient (IN) | payer MEDICAID ==
[~2016-10-08] VITALS: Ht 152.4 cm; Wt 73.1 kg
[~2016-10-08 00:46] MED LIST changes: -DOXY1TAB3 PO
[2016-10-08 00:59] VITALS: BP 122/77; PULSE 96; RESP 18; Ht 152.4 cm; Wt 73.1 kg
--- NOTE | 2016-10-08 01:19 | HP ---
Date/Time of Note Date/Time of Note DATE: 10/08/16 TIME: 01:15 OB - History Hx of Present Chief Complaint: LOF : 3 Para: 2 Care: Good Care Obstetrical Complications: Gestational Diabetes Medical Complications: None Past Family/Social History * Past Medical, Surgical, Family and Obstetric Histories reviewed from chart. GBS Status: Unknown OB Admission Exam Vital Signs Vital Signs Vital Signs Date Time Temp Pulse Resp B/P Pulse Ox O2 Delivery O2 Flow Rate FiO2 10/08/16 00:59 97.6 96 18 122/77 Physical Exam HEENT: WNL Heart: Rhythm Normal Abdomen: WNL Extremities: Normal Cervical Dilatation: 1cm Effacement: 75% Station: -2 Heart Rate: 120's Accelerations: Accelerations Present Decelerations: No Decelerations Varibility: Moderate OB Assessment/Plan Reason for admission: rupture of membranes Plan: Expectant Management Other plan: Admit to L&D. Pitocin, epidural lisbethn. KAREN FERNANDEZ Oct 08, 2016 1:19 am
[2016-10-08] MEDS ORDERED: LACTATED RINGER'S 1,000 ML IV PRN (01:55)
[2016-10-08] MEDS ORDERED: OXYTOCIN 30 UNITS/LR 500 ML IV PRN ×2 (02:00→22:30)
[2016-10-08] MEDS ORDERED: CARBOPROST 250 MCG INJ IM PRN ×2 (02:00→22:30)
[2016-10-08] MEDS ORDERED: AMPICILLIN 2 GM/NS (PMX) 100 ML IV ONE (02:00)
[2016-10-08] MEDS ORDERED: OXYTOCIN 30 UNITS/LR 500 ML IV SCH ×3 (02:00→09:30)
[2016-10-08] MEDS ORDERED: METHYLERGONOVINE 0.2 MG INJ IM PRN ×2 (02:00→22:30)
[2016-10-08] MEDS ORDERED: LIDOCAINE 1% (MPF) 30 ML INJ INJ PRN (02:00)
[2016-10-08] MEDS ORDERED: MISOPROSTOL 200 MCG TAB PR PRN ×2 (02:00→22:30)
[2016-10-08] MEDS ORDERED: IBUPROFEN 600 MG TAB PO PRN (02:00)
[2016-10-08] MEDS ORDERED: BUTORPHANOL 2 MG INJ IV PRN (02:00)
--- NOTE | 2016-10-08 02:14 | TRIAGE ---
OB Triage Datetime Report Generated by CPN: 10/08/2016 02:14 Datetime: 10/08/2016 00:55 Stage of : OB Triage Dilatation (cms): 1.0 Effacement (%): 80 Station: -2 Exam By: BIANCA GAGNON Membrane Status: Ruptured Membranes Ruptured Date/Time: 10/08/2016 00:20 Membranes Rupture Method: Spontaneous Amniotic Fluid Color: Clear Amniotic Fluid Amount: Moderate Amniotic Fluid Odor: None Datetime: 10/08/2016 00:50 Time of Arrival: 10/08/2016 00:40 EGA: 37.2 Arrived By: Ambulatory Arrived From: Home Chief Complaint: PT C/O LIQUID LEAKDING FROM VAGINAL Movement: Present Contractions: Denies/Absent Rupture of Membranes: Ruptured Vaginal Discharge: Denies Recent Sexual Intercouse: Denies Abdominal Trauma: Not Applicable Patient Complaints: Other Time Provider Notified: 10/08/2016 01:10 Initial Plan: TOCO AND EFM APPLIED, NITRA TEST Datetime: 10/07/2016 16:40 Assessment Type: Triage Level of Consciousness: Fully Conscious DTR's/Clonus: DTRs 2+; No Clonus Headache: Denies Blurred Vision: No Respiratory Effort: Unlabored; Regular Rhythm; Equal Expansion Breath Sounds, Left: Clear and Equal Breath Sounds, Right: Clear and Equal Nausea/Vomiting: Denies RUQ Epigastric Pain: Denies Lower Extremities Edema: Bilateral Lower Extremities Degree: Trace Upper Extremities Edema: Bilateral Upper Extremities Degree: Trace Facial Edema: None History of Falling: (0) No Secondary Diagnosis: (0) No Ambulatory Aid: (0) Bedrest/Nurse Assist IV Therapy: (0) No Gait: (0) Normal/Bedrest/Immobile Mental Status: (0) Oriented to Own Ability Fall Score: 0 Fall Risk Score Definition: No Risk: No action required Datetime: 10/07/2016 15:54 EGA: 37.1 Patient Complaints: Contractions; Back Pain Time Provider Notified: 10/07/2016 16:33 Provider Notified: Guido
[2016-10-08 02:20] LABS: ADD SCAN DIFF NO; BASOPHILS % 0.3 % (0.0-2.0); EOSINOPHILS # 0.1 10^3/ul (0.0-0.5); EOSINOPHILS % 0.7 % (0.0-7.0); HEMATOCRIT 25.6 % (37.0-47.0); HEMOGLOBIN 7.9 g/dl (12.0-16.0); LYMPHOCYTES # 2.5 10^3/ul (0.8-2.9); LYMPHOCYTES % 35.8 % (15.0-51.0); MEAN CORPUSCULAR HEMOGLOBIN 23.3 pg (29.0-33.0); MEAN CORPUSCULAR HGB CONC 30.9 g/dl (32.0-37.0); MEAN CORPUSCULAR VOLUME 75.5 fl (82.0-101.0); MEAN PLATELET VOLUME 12.8 fl (7.4-10.4); MONOCYTE # 0.5 10^3/ul (0.3-0.9); MONOCYTES % 7.1 % (0.0-11.0); NEUTROPHIL # 3.8 10^3/ul (1.6-7.5); NEUTROPHILS % 55.7 % (39.0-77.0); PLATELET COUNT 211 10^3/UL (140-415); RED BLOOD COUNT 3.39 10^6/ul (4.20-5.40); RED CELL DISTRIBUTION WIDTH 15.5 % (11.5-14.5); WHITE BLOOD COUNT 6.9 10^3/ul (4.8-10.8)
[2016-10-08] MEDS ORDERED: FENTAnyl 2MCG/ML-ROPIV 0.2% 100 ML ONE (02:23)
[2016-10-08 02:33] LABS: INR 0.84; PROTIME 11.5 Sec (12.2-14.2); PT RATIO 0.9
[2016-10-08 02:34] LABS: PARTIAL THROMBOPLASTIN TIME 24.9 Sec (25.0-35.0)
--- NOTE | 2016-10-08 02:58 | RADRPT ---
PROCEDURE: ULTRASOUND OBSTETRICAL CLINICAL INDICATION: 31-year-old female for size and date determination. TECHNIQUE: Multiple sonographic images of the pelvis were obtained. The images were reviewed on a PACS workstation. COMPARISON: No prior studies are available for comparison. FINDINGS: The cervix is not well visualized. There is a single viable intrauterine gestation. Cardiac activit y is present with 124 beats per minute. There is a vertex presentation. Measurements were made in or shania to determine age. The results are as follows: BPD = 9.36 cm, HC = 34.69 cm, AC = 36.30 cm, FL = 7.76 cm. This yields and estimated gestational ag e of approximately 39 weeks 4 days. The estimated date of delivery is October 11, 2016. The EFW = 39 00 +/- 585 g (8 lb 10 oz). The GP is greater than 97%. The placenta is fundal. There is no evidence for an abruption or placenta previa. IMPRESSION: 1. Single viable intrauterine gestation of approximately 39 weeks 4 days. The estimated date of de livery is October 11, 2016. 2. The estimated weight is 3900 +/- 585 g (8 lb 10 oz). The GP is greater than 97%. .Maxime Reilly MD, Date Time Electronically viewed and signed by .Maxime Reilly MD, on 10/08/2016 02:58 .Nat
[2016-10-08] MEDS ORDERED: DIPHENHYDRAMINE 50 MG INJ IV PRN (05:00)
[2016-10-08] MEDS ORDERED: NALOXONE (0.4 MG/ML) INJ IV PRN (05:00)
[2016-10-08] MEDS ORDERED: FENTAnyl 2MCG/ML-ROPIV 0.2% 100 ML BAG EPI SCH (05:00)
[2016-10-08] MEDS: AMPICILLIN 1 GM/NS (PMX) 50 ML IV SCH ×4 (06:18→18:00)
[2016-10-08] MEDS: LACTATED RINGER'S 1,000 ML IV SCH ×3 (06:27→17:54)
[2016-10-08] MEDS: ONDANSETRON 4 MG INJ IV PRN ×2 (11:11→18:09)
--- NOTE | 2016-10-08 20:25 | LDN ---
Date/Time of Note Date/Time of Note DATE: 10/08/16 TIME: 20:23 Delivery Summary term preg. NSD W/ SHOULDER DYSTOCIA. USED MACROBERTS AND SUPRABUIC PRESSURE. TOTAL TIME IS 30 SEC Placenta Delivered: Spontaneously Meconium: none Episiotomy: No Perineal laceration: 0 Anesthesia type: Epidural Estimated blood loss: 350 Sponge & Needle done & correct: Yes All needle counts correct: Yes Any foreign bodies felt in the: No Problems: TOAN BUTCHER MD Oct 08, 2016 20:24
--- NOTE | 2016-10-08 20:35 | DELSUM ---
Delivery Summary A-C Datetime Report Generated by CPN: 10/08/2016 20:35 DELIVERY PERSONNEL [employer] Consultant: Reeder, Rissa MATERNAL INFORMATION Delivery Anesthesia: Epidural Medications in Delivery: 30 UNIT PITOCIN Estimated Blood Loss (ml): 350 Placenta Cultured: No Maternal Complications: Other Other Maternal Complications: GDM LABOR SUMMARY EDC: 10/27/2016 00:00 EDC: 10/27/2016 00:00 No. Babies in Womb: 1 Attempted: No Labor Anesthesia: Epidural LABOR INFORMATION Reason for Induction: Not Applicable Onset of Labor: 10/08/2016 00:20 Complete Dilatation: 10/08/2016 18:18 Oxytocin: Augmentation Group B Beta Strep: Done, Result Unknown Group B Beta Strep: Not Done Antibiotics # of Doses: 4 Antibiotics Time of Last Dose: 10/08/2016 18:00 Steroids Given: None Reason Steroids Not Administered: Not Applicable MEMBRANES Membranes Rupture Method: Spontaneous Rupture of Membranes: 10/08/2016 00:20 Length of Rupture (hr): 19.57 Amniotic Fluid Color: Clear Amniotic Fluid Amount: Moderate Amniotic Fluid Odor: None STAGES OF LABOR Stage 1 hr: 17 Stage 1 min: 58 Stage 2 hr: 1 Stage 2 min: 36 Stage 3 hr: 0 Stage 3 min: 6 Total Time in Labor hr: 19 Total Time in Labor min: 40 VAGINAL DELIVERY Episiotomy: None Laceration Extension: N/A Laceration Type: None Laceration Repair: Not Applicable Initial Vag Sponge Count: 20 Final Vag Sponge Count: 20 Initial Vag Sharps Count: 1 Final Vag Sharps Count: 2 Sponge Count Correct: Yes Sharps Count Correct: Yes BABY A INFORMATION Delivery Date/Time: 10/08/2016 19:54 Method of Delivery: Vaginal Born in Route : No : N/A Forceps: N/A Vacuum Extraction: N/A Shoulder Dystocia : N/A SHOULDER DYSTOCIA BABY A Infant Delivery Date/Time: 10/08/2016 19:54 PRESENTATION/POSITION BABY A Presentation: Cephalic Cephalic Presentation: Vertex Vertex Position: Left Occipital Anterior Breech Presentation: N/A PLACENTA INFORMATION BABY A Placenta Delivery Time : 10/08/2016 20:00 Placenta Method of Delivery: Spontaneous Placenta Status: Delivered SCORES BABY A Heart Rate 1 min: Slow, Below 100 bpm Resp Effort 1 min: Good Cry Reflex Irritability 1 min: Cough/Sneeze/Pulls Away Muscle Tone 1 min: Active Motion Color 1 min: Blue/Pale Resuscitation Effort 1 min: Tactile Stimulation; PPV/NCPAP SCORE 1 MIN: 7 Heart Rate 5 min: >100 bpm Resp Effort 5 min: Good Cry Reflex Irritability 5 min: Cough/Sneeze/Pulls Away Muscle Tone 5 min: Active Motion Color 5 min: Body [place], Extremit Blue Resuscitation Effort 5 min: Tactile Stimulation; PPV/NCPAP SCORE 5 MIN: 9 INFANT INFORMATION BABY A Gestational Age at Delivery: 37.2 Gestational Status: Early Term- 37- 38.6 Weeks Outcome : Liveborn Infant Condition : Stable Infant Sex: Male IDENTIFICATION/MEDS BABY A ID Band Number: [id number] ID Band Location: Right Leg; Left Arm Sensor Applied: Yes Sensor Number: [id number] Sensor Location : Cord Clamp Vitamin K Given : Not Given Erythromycin Given: Not Given WEIGHT/LENGTH BABY A Birthweight (gm): 4030 Infant Weight (lb): 8 Weight (oz): 14 Length (in): 21.50 Infant Length (cm): 54.61 CORD INFORMATION BABY A No. Cord Vessels: 3 Nuchal Cord : Around Neck x1, Loose Cord Blood Taken: Yes Infant Suction: Mouth; Nose ASSESSMENT BABY A Infant Complications: None Physical Findings at Delivery: Within Normal Limits Respirations: Appears Normal Biztalk Developer/ALS Called : No Infant Care By: Rico Gillis RT Transferred To: Remains with Mother
[2016-10-08 21:45] VITALS: BP 135/80; PULSE 95; RESP 18
[2016-10-08] MEDS: LACTATED RINGER'S 1,000 ML IV* SCH (22:24)
[2016-10-08] MEDS ORDERED: SENNA/DOCUSATE NA (8.6MG/50MG) TAB PO PRN (22:30)
[2016-10-08] MEDS ORDERED: DIPHENHYDRAMINE 25 MG CAP PO PRN (22:30)
[2016-10-08] MEDS ORDERED: WITCH HAZEL/GLYCERIN PAD PR PRN (22:30)
[2016-10-08] MEDS ORDERED: MAGNESIUM HYDROXIDE 30ML CUP PO PRN (22:30)
[2016-10-08] MEDS ORDERED: BENZOCAINE 20% 56 ML SPRAY TOP PRN (22:30)
[2016-10-08] MEDS ORDERED: ACETAMINOPHEN/CODEINE #3 TAB PO PRN (22:30)
[2016-10-08] MEDS ORDERED: LANOLIN 7 GM TUBE TOP PRN (22:30)
[2016-10-08] MEDS ORDERED: ACETAMINOPHEN 325 MG TAB PO PRN (22:30)
[2016-10-08] MEDS ORDERED: ZOLPIDEM 5 MG TAB PO PRN (22:30)
[2016-10-08 22:45] VITALS: BP 131/74; PULSE 65; RESP 19
[2016-10-09] MEDS: OXYTOCIN 30 UNITS/LR 500 ML IV SCH ×2 (01:06→02:24)
[2016-10-09 03:25] VITALS: BP 123/73; PULSE 69; RESP 19
[2016-10-09] MEDS: IBUPROFEN 800 MG TAB PO SCH ×4 (06:00→18:00)
[2016-10-09] MEDS: LACTATED RINGER'S 1,000 ML IV* SCH ×3 (06:01→22:24)
[2016-10-09 07:30] VITALS: BP 121/60; PULSE 62; RESP 18
[2016-10-09 07:53] LABS: ADD SCAN DIFF NO
[2016-10-09 07:59] LABS: BASOPHILS % 0.2 % (0.0-2.0); HEMATOCRIT 24.1 % (37.0-47.0); HEMOGLOBIN 7.5 g/dl (12.0-16.0); LYMPHOCYTES # 2.6 10^3/ul (0.8-2.9); LYMPHOCYTES % 13.5 % (15.0-51.0); MEAN CORPUSCULAR HEMOGLOBIN 23.3 pg (29.0-33.0); MEAN CORPUSCULAR HGB CONC 31.1 g/dl (32.0-37.0); MEAN CORPUSCULAR VOLUME 74.8 fl (82.0-101.0); MEAN PLATELET VOLUME 13.6 fl (7.4-10.4); MONOCYTE # 1.1 10^3/ul (0.3-0.9); MONOCYTES % 5.9 % (0.0-11.0); NEUTROPHIL # 15.3 10^3/ul (1.6-7.5); NEUTROPHILS % 79.8 % (39.0-77.0); PLATELET COUNT 180 10^3/UL (140-415); RED BLOOD COUNT 3.22 10^6/ul (4.20-5.40); RED CELL DISTRIBUTION WIDTH 15.8 % (11.5-14.5); WHITE BLOOD COUNT 19.2 10^3/ul (4.8-10.8)
--- NOTE | 2016-10-09 10:47 | DS ---
Date/Time of Note Date/Time of Note DATE: 10/09/16 TIME: 10:46 Discharge Summary Admission/Discharge Info Admit Date/Time Oct 08, 2016 at 01:28 Discharge Date/Time Final Diagnosis term preg Patient Condition: Stable Hospital Course unremarkable Home Meds Active Scripts Multivit/Min/Fol Ac/Iron/Pren* ( S*) 1 Tab Tab, 1 TAB PO DAILY for 30 Days, TAB Prov:BRAULIO ESPINOZA V. GYPSUM BLOCK SETTER 03/17/16 Discontinued Scripts Doxylamine/Pyridoxine Hcl (NEIL DUGGAN 10-10 MG TABLET) 1 Each Tablet., 1 TAB PO Q12 for VOMITTING, #30 TAB Prov:BRAULIO ESPINOZA V. GYPSUM BLOCK SETTER 03/17/16 Pending Labs Laboratory Tests Test 10/08/16 15:16 10/08/16 18:15 10/09/16 06:50 Bedside Glucose 86mg/dL (70-220) 89mg/dL (70-220) White Blood Count 19.210^3/ul (4.8-10.8) Red Blood Count 3.2210^6/ul (4.20-5.40) Hemoglobin 7.5g/dl (12.0-16.0) Hematocrit 24.1% (37.0-47.0) Mean Corpuscular Volume 74.8fl (82.0-101.0) Mean Corpuscular Hemoglobin 23.3pg (29.0-33.0) Mean Corpuscular Hemoglobin Concent 31.1g/dl (32.0-37.0) Red Cell Distribution Width 15.8% (11.5-14.5) Platelet Count 86563^3/UL (140-415) Mean Platelet Volume 13.6fl (7.4-10.4) Neutrophils % 79.8% (39.0-77.0) Lymphocytes % 13.5% (15.0-51.0) Monocytes % 5.9% (0.0-11.0) Eosinophils % 0.0% (0.0-7.0) Basophils % 0.2% (0.0-2.0) Nucleated Red Blood Cells % 0.0/100WBC (0.0-0.0) Neutrophils # 15.310^3/ul (1.6-7.5) Lymphocytes # 2.610^3/ul (0.8-2.9) Monocytes # 1.110^3/ul (0.3-0.9) Eosinophils # 0.010^3/ul (0.0-0.5) Basophils # 0.010^3/ul (0.0-0.1) Nucleated Red Blood Cells # 0.010^3/ul (0.0-0.0) TOAN BUTCHER MD Oct 09, 2016 10:47
[2016-10-09 15:30] VITALS: BP 117/58; PULSE 66; RESP 19
--- NOTE | 2016-10-09 17:59 | QN ---
Documentation Comment PPD#1 is stable afebrile tolerates Diet No VB +BM +voids VS stable Gen NAD Abd soft NT ND Genitalia No blood at perinium --->discharge plan tomorrow BOB DUBOIS M.D. Oct 09, 2016 17:58
[2016-10-09 20:49] VITALS: BP 111/74; PULSE 72; RESP 18
[2016-10-10 05:56] VITALS: BP 121/61; PULSE 62; RESP 18
[2016-10-10] MEDS: IBUPROFEN 800 MG TAB PO SCH ×3 (05:59→12:00)
[2016-10-10] MEDS: LACTATED RINGER'S 1,000 ML IV* SCH ×2 (06:24→14:24)
[2016-10-10] MEDS ORDERED: VARICELLA VACCINE LIVE/PF 1,350 UNIT/0.5 ML ML SC* ONE (09:00)
[2016-10-10] MEDS ORDERED: DIPHTH/TET/ACEL PERTUSS (ADULT) 0.5 ML VIAL IM* ONE (09:00)
[2016-10-10] MEDS ORDERED: MEASLES,MUMPS,RUBELLA VACCINE INJ SC* ONE (09:00)
[2016-10-10 16:00] VITALS: BP 130/62; PULSE 69; RESP 18
== END 2016-10-10 17:59 | disposition home or self-care (01) | DRG 775 ==
LOC: OBT 00:46 → L-D 00:47 → OBT 01:28 → PP1 21:41
PROVIDERS: ADMIT Obstetrics & Gynecology; ATTEND Obstetrics & Gynecology
PROC: 10E0XZZ Delivery of Products of Conception, External Approach (ICD-10-PCS; principal; 2016-10-08)
DX: O24.429 Gestational diabetes mellitus in childbirth, unspecified control (principal); O66.0 Obstructed labor due to shoulder dystocia; O69.81X0 Labor and delivery complicated by cord around neck, without compression, not applicable or unspecified; Z3A.37 37 weeks gestation of pregnancy; Z37.0 Single live birth
CPT/HCPCS: 62319; 76815; 82962; 85025; 85610; 85730; 86592; 86900; 86901; 87340; 90715; 90716; 99464; G0463; J0290; J2405; J2590; J3010; J7120

== ENCOUNTER 2018-03-05 05:22 | Inpatient (IN) | END 2018-03-06 15:45 | disposition home or self-care (01) | DRG 342 ==

== ENCOUNTER 2018-07-06 18:05 | Emergency (ER) | payer SELFPAY ==
[~2018-07-06] VITALS: Ht 154.9 cm; Wt 60.8 kg
[~2018-07-06 18:05] MED LIST changes: +CIPR500T4 PO; +GLIP5TAB13 PO; +GLUCOMETER; +METF-849 PO; -PRENAT PO
[2018-07-06 18:39] VITALS: Ht 154.9 cm; Wt 60.8 kg
== END 2018-07-06 19:05 | disposition left against medical advice (07) ==
LOC: FTE 18:05
DX: Z53.21 Procedure and treatment not carried out due to patient leaving prior to being seen by health care provider (principal)